=== PATIENT | female | born 1985 | race Caucasian/White ===

== ENCOUNTER 2017-09-20 21:06 | Emergency (ER) | payer MEDICAID ==
[2017-09-20] MEDS: ACETAMINOPHEN 325 MG TAB PO (22:10)
[2017-09-20] MEDS: HYDROCODONE/APAP (5/325) TAB PO (22:10)
== END 2017-09-20 22:43 | disposition home or self-care (01) ==
LOC: FTE 21:06
DX: B02.9 Zoster without complications (principal)
CPT/HCPCS: 99284; Z7502